=== PATIENT | female | born 1980 | race African-American/Black ===

== ENCOUNTER → 2016-08-25 | Outpatient (CLI) | payer BC ==
--- NOTE | 2016-08-25 11:55 | RAD ---
EXAM: Abdomen sonogram. HISTORY: Pain. TECHNIQUE: Sonographic imaging of the abdomen was performed. COMPARISON: CT dated 01/24/2014. FINDINGS: The liver is enlarged. There is suggestion of hepatic steatosis. There is a rounded isoechoic lesion within the right hepatic lobe measuring 3.7 cm. The gallbladder is unremarkable. The common bile duct is normal in caliber. The kidneys are unremarkable. The pancreatic tail and spleen are obscured. The inferior vena cava is patent. The aorta is normal in caliber. IMPRESSION: 1. Hepatomegaly and possible hepatic steatosis. 2. 3.7 cm rounded isoechoic lesion within the right hepatic lobe, not typical in echogenicity for a hemangioma. This likely corresponds with the hypodense lesion in this location on the CT dated 01/24/2014. The additional smaller hypodense lesion within the liver on the prior CT is not seen on this sonogram. Liver protocol CT or MRI is recommended if not previously performed. 3. Obscured pancreatic tail and spleen.
== END | disposition home or self-care (01) ==
LOC: US 10:09
PROVIDERS: ATTEND Family Medicine
DX: R16.0 Hepatomegaly, not elsewhere classified (principal)
CPT/HCPCS: 76700

== ENCOUNTER → 2017-09-09 | Outpatient (CLI) | payer BC ==
--- NOTE | 2017-09-09 09:55 | RAD ---
Lumbar spine, 5 views, 09/09/2017: History: Back pain The lumbar vertebral heights and intervertebral disc spaces are well-maintained. There are minimal scattered marginal spurs. No fracture or dislocation is identified. There is no evidence of spondylolysis. There are minimal sclerotic changes involving facet joints in the lower lumbar spine. The paraspinous soft tissues are unremarkable. IMPRESSION: 1. Minimal degenerative change. 2. No acute bony abnormality is detected.
== END | disposition home or self-care (01) ==
LOC: PMG 09:19
PROVIDERS: ATTEND Physician Assistant Medical
DX: M47.896 Other spondylosis, lumbar region (principal)
CPT/HCPCS: 72110